=== PATIENT | male | born 1995 | race African-American/Black ===

== ENCOUNTER 2020-06-10 19:41 | Emergency (ER) | payer OTHER, MEDICAID ==
[~2020-06-10] VITALS: Ht 182.9 cm; Wt 69.0 kg
[2020-06-10 23:00] VITALS: BP 112/72
== END 2020-06-10 23:01 | disposition home or self-care (01) ==
LOC: ER 19:41
DX: R05 Cough (principal); J45.909 Unspecified asthma, uncomplicated
CPT/HCPCS: 71045; 99283

== ENCOUNTER 2020-06-15 16:37 | Emergency (ER) | payer MEDICAID, OTHER ==
[~2020-06-15] VITALS: Ht 182.9 cm; Wt 65.0 kg
[2020-06-15] MEDS ORDERED: KETOROLAC 60MG/2ML VIAL IM ONE (16:45)
[2020-06-15 20:49] VITALS: BP 124/83
== END 2020-06-15 21:15 | disposition home or self-care (01) ==
LOC: ER 16:37
DX: I31.9 Disease of pericardium, unspecified (principal)
CPT/HCPCS: 36415; 71045; 84484; 93005; 96372; 99285; J1885